=== PATIENT | female | born 1960 | race African-American/Black ===

== ENCOUNTER 2023-12-09 14:12 | Emergency (ER) | payer OTHER, SELFPAY ==
--- NOTE | ~2023-12-09 | CT_ITS ---
EXAMINATION: CTA chest PE protocol DATE: 12/09/2023 20:24 INDICATION: coughing up blood TECHNIQUE: Computed tomography angiography (CTA) of the chest was performed with 100 mL Omnipaque-350 intravenous contrast timed to evaluate the pulmonary arteries. Coronal maximum intensity projection 3D-reconstructions were created by the technologist. The dose-length product (DLP) was 225.63 mGy-cm. Automated exposure control and iterative reconstruction technique were employed. COMPARISON: None. FINDINGS: Lung parenchyma and airways: Severe emphysematous change. Calcified left upper lobe and left lower lo be granulomas. Pleura: Unremarkable. Thoracic inlet, axillae and chest wall: Unremarkable. Thoracic aorta: Mild arch calcification. No aneurysm or dissection. Mediastinum: Calcified hilar and mediastinal nodes. Heart and pericardium: Mild cardiomegaly. No pericardial effusion. Coronary artery calcifications: Mild. Upper abdomen: No significant finding. Bones: No acute osseous finding. Pulmonary arteries: Study quality: Adequate. No pulmonary emboli detected. IMPRESSION: No CT evidence of acute pulmonary embolus. No acute process detected in the chest. Reviewed, dictated and finalized at location K. [employer]
[2023-12-09 14:35] VITALS: BP 183/103; PULSE 91; RESP 18; TEMP 36.3; O2SAT 97
[2023-12-09 16:04] LABS: Appearance Urine Clear (Clear); Bilirubin Urine Negative (Negative); Blood Urine Negative (Negative); Color Urine Yellow (Yellow); Glucose Urine UA Negative (Negative); Ketones Urine Negative (Negative); Leukocyte Esterase Ur Negative LEU/UL (Negative); Nitrate Urine Negative (Negative); Protein Urine Negative (Negative); Specific Grav Ur 1.003 (1.001-1.035); pH Urine 7.5 (5.0-9.0)
[2023-12-09 16:07] LABS: Add Urine Microscopic? NO
[2023-12-09 18:53] VITALS: BP 197/114; PULSE 89; RESP 18; TEMP 36.6; O2SAT 99
--- NOTE | 2023-12-09 19:18 | ED.GENADULT ---
HPI - General Adult General Chief complaint: Upper Respiratory Infection Stated complaint: coughing up blood Time Seen by Provider: 12/09/23 19:01 History of Present Illness HPI narrative: 63-year-old female presenting to the emergency department for evaluation after having some episodes of hemoptysis today. Patient is not on any blood thinners. Patient states she has had hemoptysis previously. Patient states that previous underlying cause of her mopped assist was thought to be bronchitis. Patient denies any prior history of PE or DVT. Patient states that she has had multiple episodes small amounts of hemoptysis today. Patient states she has only had blood-tinged sputum, patient denies passing any large clots Related Data Allergies Allergy/AdvReac Type Severity Reaction Status Date / Time No Known Allergies Allergy Verified 12/09/23 14:40 Review of Systems Review of Systems: All systems reviewed & are unremarkable except as noted in HPI and below Exam Narrative: APPEARANCE: Well appearing, no pain, no distress, well-nourished. HEAD: normocephalic, atraumatic. EYES: PERRLA/EOMI, conjunctivae clear. NOSE: Normal no drainage EARS:TMS clear with good light reflex. THROAT: Pharynx clear, no exudate. NECK: Supple. No adenopathy, no masses. RESPIRATORY: Airway patent, respirations nonlabored. Clear to auscultation bilaterally, no rales, rhonchi, wheezing. CARDIOVASCULAR: Regular rate and rhythm without murmurs rubs or gallops. ABDOMINAL: Soft, nontender, nondistended, normal bowel sounds MUSCULOSKELETAL: Moves all extremities. Strength/ROM intact, No edema, No calf tenderness. NEURO: Alert. Cranial nerves II through XII intact. Good gait. Good coordination SKIN: Warm, dry. Normal Color Course Course Emergency Course: 63-year-old female presents to the emergency department for evaluation of hemoptysis. patient is afebrile with no leukocytosis and a stable hemoglobin of 16.4. Patient had an INR of 1.0. Patient had no large mopped assist emergency department. Patient was negative for influenza RSV for COVID. CT showed no evidence of active hemorrhage or pulmonary embolism. Patient does have history of COPD and bronchitis. Patient was started on antibiotics for possible underlying bacterial etiology. Patient and family were updated on the results of the workup. All questions concerns were addressed patient was well-appearing at time of discharge. Vital Signs Vital signs: Vital Signs Temperature 97.3 F L 12/09/23 14:35 Pulse Rate 91 12/09/23 14:35 Respiratory Rate 18 12/09/23 14:35 Blood Pressure 183/103 H 12/09/23 14:35 Pulse Oximetry 97 12/09/23 14:35 Oxygen Delivery Room Air 12/09/23 14:35 Temperature 98.1 F 12/09/23 22:10 Pulse Rate 90 12/09/23 22:10 Respiratory Rate 22 H 12/09/23 22:10 Blood Pressure 162/82 H 12/09/23 22:10 Pulse Oximetry 90 12/09/23 22:10 Oxygen Delivery Room Air 12/09/23 19:30 Medical Decision Making Differential Diagnosis Differential Diagnosis: Pneumonia, pneumothorax, influenza, RSV, COVID, hemoptysis, pulmonary embolism Vital Signs Vital Signs: Vital Signs Temperature 97.3 F L 12/09/23 14:35 Pulse Rate 91 12/09/23 14:35 Respiratory Rate 18 12/09/23 14:35 Blood Pressure 183/103 H 12/09/23 14:35 Pulse Oximetry 97 12/09/23 14:35 Oxygen Delivery Room Air 12/09/23 14:35 Temperature 98.1 F 12/09/23 22:10 Pulse Rate 90 12/09/23 22:10 Respiratory Rate 22 H 12/09/23 22:10 Blood Pressure 162/82 H 12/09/23 22:10 Pulse Oximetry 90 12/09/23 22:10 Oxygen Delivery Room Air 12/09/23 19:30 Lab Data Lab results reviewed: Yes I reviewed the patient's lab results. 12/09/23 19:23 12/09/23 19:23 Labs: Lab Results 12/09/23 12/09/23 Range/Units 15:45 19:23 WBC 9.5 (4.5-10.0) K/mm3 RBC 5.40 (4.2-5.4) M/mm3 Hgb 16.4 H (12.0-15.0) g/dL Hct 52.0 H (37.0-47
[2023-12-09 19:30] VITALS: O2SAT 92
[2023-12-09 19:41] LABS: Basophils Absolute Auto 0.1 K/mm3 (0.0-0.1); Basophils Percent Auto 1.1 % (0.2-1.2); Eosinophils Absolute Auto 0.1 K/mm3 (0-0.3); Eosinophils Percent Auto 1.3 % (0-4.4); Hemoglobin 16.4 g/dL (12.0-15.0); Immature Granulocyte Absolute 0.02 K/mm3 (0.00-0.031); Immature Granulocyte Percent A 0.2 % (0-0.5); Lymphocytes Percent Auto 30.5 % (18.3-44.2); Mean Corpuscular HGB Conc 31.5 g/dl (32-36); Mean Corpuscular Hemoglobin 30.4 pg (26-34); Mean Corpuscular Volume 96.3 fl (80-100); Mean Platelet Volume 9.4 fl (7.4-10.4); Monocytes Absolute Auto 0.7 K/mm3 (0.1-0.6); Monocytes Percent Auto 7.1 % (2.6-8.5); Neutrophils Absolute Auto 5.7 K/mm3 (1.3-6.7); Neutrophils Percent Auto 59.8 % (45.5-73.1); Platelet Count Result 331 k/mm3 (150-375); Red Cell Distribution Width 17.3 % (11.5-14.5); White Blood Count 9.5 K/mm3 (4.5-10.0)
[2023-12-09 19:51] LABS: Alanine Aminotransferase 14 U/L (6-35); Albumin Level 4.7 g/dL (3.5-5.1); Alkaline Phosphatase 135 U/L (38-126); Anion Gap 8 mmol/L (8-16); Aspartate Amino Transferase 27 U/L (14-36); Bilirubin,Total 1.4 mg/dL (0.2-1.3); Blood Urea Nitrogen 11 mg/dL (7-17); Carbon Dioxide 32 mmol/L (22-30); Chloride 102 mmol/L (98-107); Estimated CRCL calculation 62 ml/min; Estimated Glomerular Filt Rate > 60; Glucose 106 mg/dL (65-110); Potassium 3.8 mmol/L (3.4-5.0); Sodium 142 mmol/L (137-145)
[2023-12-09 19:52] LABS: Prothrombin Time 13.8 Seconds (11.1-14.7)
[2023-12-09 19:53] LABS: Partial Thromboplastin Time 31.4 SECONDS (22.3-36.8)
[2023-12-09 20:19] LABS: Influenza A QL RT-PCR Negative (Negative); Influenza B QL RT-PCR Negative (Negative); RSV RNA, RT-PCR Negative (Negative); SARS-CoV-2 RNA PCR Negative (Negative)
[2023-12-09 20:57] VITALS: BP 181/101; PULSE 97; RESP 22; O2SAT 95
[2023-12-09] MEDS: AZITHROMYCIN 250 MG TABLET 500 MG PO (21:35)
[2023-12-09] MEDS: hydrALAZINE HCL 20 MG/ML VIAL 10 MG IV PUSH (21:37)
[2023-12-09] MEDS: AMOXICILLIN/CLAVULANATE K 875-125 MG TAB 1 TABLET PO (21:37)
[2023-12-09 22:10] VITALS: BP 162/82; PULSE 90; RESP 22; TEMP 36.7; O2SAT 90
== END 2023-12-09 22:11 | disposition home or self-care (01) ==
PROVIDERS: Emergency Provider Emergency Medicine
DX: J40 Bronchitis, not specified as acute or chronic (principal); R04.2 Hemoptysis; Z20.822 Contact with and (suspected) exposure to COVID-19
CPT/HCPCS: 36415; 71275; 80053; 81003; 85025; 85610; 85730; 87637; 96374; 99284; A9270; J0360; Q9967

== ENCOUNTER 2024-02-17 01:04 | Emergency (ER) | payer OTHER, SELFPAY ==
[2024-02-17] VITALS (8 sets, daily range): BP systolic 144–175; BP diastolic 85–118; PULSE 77–114; RESP 12–20; TEMP 36.9; O2SAT 90–95
[2024-02-17 02:03] LABS: Basophils Absolute Auto 0.1 K/mm3 (0.0-0.1); Basophils Percent Auto 0.9 % (0.2-1.2); Eosinophils Absolute Auto 0.1 K/mm3 (0-0.3); Eosinophils Percent Auto 1.2 % (0-4.4); Hematocrit 48.7 % (37.0-47.0); Hemoglobin 15.9 g/dL (12.0-15.0); Immature Granulocyte Absolute 0.04 K/mm3 (0.00-0.031); Immature Granulocyte Percent A 0.4 % (0-0.5); Lymphocytes Absolute Auto 1.57 K/mm3 (0.9-3.2); Mean Corpuscular HGB Conc 32.6 g/dl (32-36); Mean Corpuscular Hemoglobin 29.9 pg (26-34); Mean Corpuscular Volume 91.5 fl (80-100); Mean Platelet Volume 9.9 fl (7.4-10.4); Monocytes Absolute Auto 0.6 K/mm3 (0.1-0.6); Monocytes Percent Auto 5.5 % (2.6-8.5); Neutrophils Absolute Auto 8.1 K/mm3 (1.3-6.7); Platelet Count Result 255 k/mm3 (150-375); Red Blood Count 5.32 M/mm3 (4.2-5.4); Red Cell Distribution Width 17.4 % (11.5-14.5); White Blood Count 10.5 K/mm3 (4.5-10.0)
[2024-02-17 02:14] LABS: Anion Gap 9 mmol/L (4-12); Blood Urea Nitrogen 14 mg/dL (7-17); Calcium 10.8 mg/dL (8.4-10.2); Carbon Dioxide 23 mmol/L (22-30); Chloride 109 mmol/L (98-107); Estimated CRCL calculation 72 ml/min; Estimated Glomerular Filt Rate > 60; Glucose 131 mg/dL (65-110); Potassium 4.4 mmol/L (3.4-5.0); Prothrombin Time 13.1 Seconds (11.1-14.7); Sodium 141 mmol/L (137-145)
[2024-02-17 02:15] LABS: Partial Thromboplastin Time 30.8 Seconds (22.3-36.8)
--- NOTE | 2024-02-17 04:24 | ED.GENADULT ---
HPI - General Adult General Chief complaint: Epistaxis Stated complaint: nosebleed, coughing up clots, Time Seen by Provider: 02/17/24 01:13 History of Present Illness HPI narrative: This is a 63-year-old female presenting with epistaxis. Patient started have a nose bleed around 10:00 p.m.. They then went to [place] and left after being there for 3 hours at not receiving any care. Here the patient has been coughing up clots. Patient admits to picking her nose. no use of blood thinners. No chest pain or difficulty breathing. Related Data Allergies Allergy/AdvReac Type Severity Reaction Status Date / Time No Known Allergies Allergy Verified 02/17/24 01:16 Exam Narrative: APPEARANCE: No apparent distress. Head: atraumatic. EYES: EOMI, NOSE: Bleeding from the left nare, unable to visualize a distinct point of bleeding NECK: Trachea midline RESPIRATORY: No increased rate of breathing CARDIOVASCULAR: RRR, ABDOMINAL: Non-distended MUSCULOSKELETAl: No obvious deformities NEURO: Alert. Moving 4/4 extremities SKIN:: Warm, dry. Normal color PSYCHIATRIC: Normal affect Course Vital Signs Vital signs: Vital Signs Temperature 98.4 F 02/17/24 01:11 Pulse Rate 114 H 02/17/24 01:11 Respiratory Rate 17 02/17/24 01:11 Blood Pressure 175/95 H 02/17/24 01:11 Pulse Oximetry 92 02/17/24 01:11 Oxygen Delivery Room Air 02/17/24 01:11 Temperature 98.4 F 02/17/24 01:11 Pulse Rate 106 H 02/17/24 01:46 Respiratory Rate 18 02/17/24 01:46 Blood Pressure 144/90 H 02/17/24 01:46 Pulse Oximetry 91 02/17/24 01:46 Oxygen Delivery Room Air 02/17/24 01:11 Procedures Epistaxis Control left: Epistaxis Control Date: 02/17/24 Nose Prepped With: oxymetazoline Direct Inspection: yes and unable to visualize Clots Removed by: blowing nose Cautery Used: none Device Inserted: hemostatic balloon Device Size: 75 Patient Tolerated Procedure: well Medical Decision Making MDM Narrative Medical decision making narrative: -Course: 63-year-old female presenting with epistaxis. Unable to control the bleeding with Afrin and direct pressure. A 7.5 cm rhino rocket was placed with hemostasis. Patient discharged with ENT follow-up. -Independent interpretation of studies: Labs reviewed within normal limits -Procedures: nasal packing -Shared decision making / Disposition: discharged Vital Signs Vital Signs: Vital Signs Temperature 98.4 F 02/17/24 01:11 Pulse Rate 114 H 02/17/24 01:11 Respiratory Rate 17 02/17/24 01:11 Blood Pressure 175/95 H 02/17/24 01:11 Pulse Oximetry 92 02/17/24 01:11 Oxygen Delivery Room Air 02/17/24 01:11 Temperature 98.4 F 02/17/24 01:11 Pulse Rate 106 H 02/17/24 01:46 Respiratory Rate 18 02/17/24 01:46 Blood Pressure 144/90 H 02/17/24 01:46 Pulse Oximetry 91 02/17/24 01:46 Oxygen Delivery Room Air 02/17/24 01:11 Lab Data 02/17/24 01:57 02/17/24 01:57 Labs: Lab Results 02/17/24 Range/Units 01:57 WBC 10.5 H (4.5-10.0) K/mm3 RBC 5.32 (4.2-5.4) M/mm3 Hgb 15.9 H (12.0-15.0) g/dL Hct 48.7 H (37.0-47.0) % MCV 91.5 (80-100) fl MCH 29.9 (26-34) pg MCHC 32.6 (32-36) g/dl RDW 17.4 H (11.5-14.5) % Plt Count 255 (150-375) k/mm3 MPV 9.9 (7.4-10.4) fl Immature Gran % (Auto) 0.4 (0-0.5) % Neut % (Auto) 77.0 H (45.5-73.1) % Lymph % (Auto) 15.0 L (18.3-44.2) % [place] % (Auto) 5.5 (2.6-8.5) % Eos % (Auto) 1.2 (0-4.4) % Baso % (Auto) 0.9 (0.2-1.2) % Lymph # (Auto) 1.57 (0.9-3.2) K/mm3 [place] # (Auto) 0.6 (0.1-0.6) K/mm3 Eos # (Auto) 0.1 (0-0.3) K/mm3 Baso # (Auto) 0.1 (0.0-0.1) K/mm3 Abs Immat Gran (auto) 0.04 H (0.00-0.031) K/mm3 Absolute Neuts (auto) 8.1 H (1.3-6.7) K/mm3 Absolute Nucleated RBC 0.000 (0.0-0.012) K/mm3 Nucleated RBC % 0.0 (0.0-0.2) % PT 13.1 (11.1-14.7) Seconds
== END 2024-02-17 04:48 | disposition home or self-care (01) ==
PROVIDERS: Emergency Provider Emergency Medicine
DX: R04.0 Epistaxis (principal)
CPT/HCPCS: 30901; 36415; 80048; 85025; 85610; 85730; 99283; A9270

== ENCOUNTER 2024-02-17 18:26 | Emergency (ER) | payer OTHER, SELFPAY ==
[2024-02-17 18:31] VITALS: BP 146/91; PULSE 87; RESP 16; TEMP 36.2; O2SAT 98
--- NOTE | 2024-02-17 19:29 | ED.EPISTAXIS ---
HPI - Epistaxis General Chief complaint: Epistaxis Stated complaint: Nose bleed Time Seen by Provider: 02/17/24 19:20 Source: patient and family Mode of arrival: ambulatory Limitations: no limitations History of Present Illness HPI Narrative: 63 years old female came with left nostril bleed. Patient came to our emergency room yesterday and had ) placed at the time. Patient report that left nostril is losing blood every now and then. She is not on anticoagulant medication, or anti-platelet medication. Related Data Allergies Allergy/AdvReac Type Severity Reaction Status Date / Time No Known Allergies Allergy Verified 02/17/24 01:16 Review of Systems Review of Systems: All systems reviewed & are unremarkable except as noted in HPI and below Exam Narrative: General appearance: Well-developed, well-nourished Skin: Normal color Head: Normocephalic, nontraumatic Eyes: Clear conjunctiva ENT: Rhino rocket in the left nostril, slight moist blood at the nostril, no active bleeding, right nostril showed no active bleeding. Oral exam showed no leaking of blood at the oropharyngeal area. Neck: Supple, nontender C Neurologic: Alert and oriented ?3, [employer] is normal as tested, no gross motor deficit Course Vital Signs Vital signs: Vital Signs Temperature 36.2 C L 02/17/24 18:31 Pulse Rate 87 02/17/24 18:31 Respiratory Rate 16 02/17/24 18:31 Blood Pressure 146/91 H 02/17/24 18:31 Pulse Oximetry 98 02/17/24 18:31 Temperature 36.2 C L 02/17/24 18:31 Pulse Rate 87 02/17/24 18:31 Respiratory Rate 16 02/17/24 18:31 Blood Pressure 146/91 H 02/17/24 18:31 Pulse Oximetry 98 02/17/24 18:31 MDM - Epistaxis MDM Narrative Medical decision making narrative: No intervention is required at this time. The patient will be discharged and keep her appointment with the ENT in 2 days Differential Diagnosis Differential diagnosis: Likely anterior epistaxis Critical Care Time Critical Care Time Critical Care Time: No Discharge Plan Discharge Clinical Impression: Epistaxis Patient Disposition: Home, Self-Care Condition: Stable Instructions: Nosebleed (ED) Additional Instructions: Return if symptoms are worsening , follow-up with ENT Monday, take Tylenol as as needed for aches and pain, continue home medications. avoid touching or pushing the nasal pack. Losing blood every now and then is okay, Come back to the emergency room in Prescriptions: [place]-Synephrine (phenylephrine) 0.5 % spray,non-aerosol 1 spray intranasal Q6H 3 Days Qty: 15 0RF No Action amoxicillin-pot clavulanate 875-125 mg tablet 1 tablet PO Q12H Qty: 14 0RF azithromycin 250 mg tablet See Rx Instructions .ROUTE .COMPLEX Qty: 6 0RF Rx Instructions: For 250 mg dose pack: take 500 mg today (day 1), then 250 mg for 4 days (days 2-5) benzonatate 100 mg capsule 100 mg PO TID PRN (Reason: cough) Qty: 14 0RF albuterol sulfate 2.5 mg /3 mL (0.083 %) solution for nebulization 2.5 mg inhalation Q4H PRN (Reason: shortness of breath or wheezing) Qty: 75 0RF Follow-up/Referrals: Dirk Pina MD [Physician] - 02/19/24 UNKNOWN,DOCTOR [Primary Care Provider] -
== END 2024-02-17 19:50 | disposition home or self-care (01) ==
LOC: ANHED 19:41
PROVIDERS: Emergency Provider Emergency Medicine
DX: R04.0 Epistaxis (principal)
CPT/HCPCS: 99283